=== PATIENT | female | born 1955 | race Caucasian/White ===

== ENCOUNTER 2019-06-13 05:48 | Day surgery (SDC) | payer MEDICARE, OTHER ==
[~2019-06-13] VITALS: Ht 167.6 cm; Wt 92.5 kg
[~2019-06-13 05:48] MED LIST: AMLO5TAB88 PO; ASPI-1393 PO; ATOR-2 PO; CARV6.2548 PO; CHOL100036 PO; FENO48TA4 PO; GLIP5TAB12 PO; LISI10TA5 PO; MAGN500C4 PO; METF-815 PO; PYRI100T2 PO; SITA50TA3 PO; VITA1CAP19 PO; VITA400T9 PO
[2019-06-13] MEDS ORDERED: LIDOCAINE HCL 1% 20ML VIAL (Pyxis) INJ ONE (06:51)
[2019-06-13] MEDS ORDERED: MINERAL OIL 10 ML VIAL MC ONE (06:52)
[2019-06-13] MEDS ORDERED: BUPIVACAINE HCL/EPINEPHRINE 0.5%/0.0005 30ML ONE (06:52)
[2019-06-13] MEDS ORDERED: PROPOFOL 200MG/20ML VIAL IV ONE ×2 (07:21→07:44)
[2019-06-13] MEDS ORDERED: MIDAZOLAM HCL 2 MG/2 ML VIAL ONE (07:21)
[2019-06-13] MEDS ORDERED: DEXAMETHASONE 4MG/ML 1ML VIAL ONE (07:21)
[2019-06-13] MEDS ORDERED: FENTANYL CITRATE/PF 50MCG/ML 2ML VIAL ONE (07:21)
[2019-06-13] MEDS ORDERED: ONDANSETRON HCL 4MG/2ML INJ ONE (07:21)
[2019-06-13] MEDS ORDERED: HYDROMORPHONE HCL/PF 2MG/ML CPJ IV PRN (08:00)
[2019-06-13] MEDS ORDERED: ONDANSETRON HCL 4MG/2ML INJ IV PRN (08:00)
[2019-06-13] MEDS ORDERED: LABETALOL 5MG/ML SYR 20 MG/4 ML SYRINGE IV PRN (08:00)
[2019-06-13] MEDS ORDERED: MEPERIDINE HCL/PF 25MG/ML CPJ IV PRN (08:00)
[2019-06-13] MEDS ORDERED: SKIN ADHESIVE 0.7 GM EA TOP ONE ×2 (08:07→08:19)
[2019-06-13] MEDS ORDERED: SODIUM CHLORIDE 0.9% 10ML VIAL ONE (08:39)
[2019-06-13] MEDS ORDERED: CEFAZOLIN SODIUM 1000MG/VIAL ONE (08:39)
== END 2019-06-13 10:40 | disposition home or self-care (01) ==
LOC: OR 05:48
PROVIDERS: ATTEND Surgery
DX: C76.52 Malignant neoplasm of left lower limb (principal); E11.9 Type 2 diabetes mellitus without complications; I25.10 Atherosclerotic heart disease of native coronary artery without angina pectoris; I11.9 Hypertensive heart disease without heart failure; I25.2 Old myocardial infarction; E78.00 Pure hypercholesterolemia, unspecified; Z95.5 Presence of coronary angioplasty implant and graft; Z90.710 Acquired absence of both cervix and uterus; Z87.891 Personal history of nicotine dependence; Z88.8 Allergy status to other drugs, medicaments and biological substances; Z88.0 Allergy status to penicillin; Z88.5 Allergy status to narcotic agent; Z88.1 Allergy status to other antibiotic agents; Z88.6 Allergy status to analgesic agent; Z85.828 Personal history of other malignant neoplasm of skin; Z79.899 Other long term (current) drug therapy; Z79.84 Long term (current) use of oral hypoglycemic drugs; Z79.82 Long term (current) use of aspirin; Z82.49 Family history of ischemic heart disease and other diseases of the circulatory system; Z83.3 Family history of diabetes mellitus
CPT/HCPCS: 11626; 15240; 82962; 88305; 88311; J0171; J0690; J1100; J2250; J2405; J2704; J3010; J3490